=== PATIENT | male | born 1965 | race Caucasian/White ===

== ENCOUNTER 2017-07-28 22:04 | Emergency (ER) | payer OTHER ==
[2017-07-28] MEDS ORDERED: KETOROLAC TROMETHAMINE 30MG/ML ONE (22:59)
== END 2017-07-28 23:26 | disposition home or self-care (01) ==
LOC: EDH 22:04
DX: S27.898A Other injury of other specified intrathoracic organs, initial encounter (principal); S22.31XA Fracture of one rib, right side, initial encounter for closed fracture; I10 Essential (primary) hypertension; E11.9 Type 2 diabetes mellitus without complications; Z79.4 Long term (current) use of insulin; Z88.0 Allergy status to penicillin; W18.39XA Other fall on same level, initial encounter; Y93.89 Activity, other specified; Y92.89 Other specified places as the place of occurrence of the external cause; Y99.8 Other external cause status
CPT/HCPCS: 71046; 71100; 96372; 99284; J1885

== ENCOUNTER 2017-10-04 21:40 | Emergency (ER) | payer OTHER ==
[2017-10-04 21:54] LABS: BASOPHILS % (AUTO) 0.5 % (0.0-5.0); EOSINOPHILS % (AUTO) 3.3 % (0.0-8.0); HEMATOCRIT 46.6 % (42-54); LYMPHOCYTES % (AUTO) 40.5 % (21.0-51.0); MEAN CORPUSCULAR HEMOGLOBIN 28.7 pg (27.0-33.0); MEAN CORPUSCULAR HGB CONC 33.1 g/dL (32.0-36.0); MEAN CORPUSCULAR VOLUME 86.7 fL (79-99); MONOCYTES % (AUTO) 10.5 % (3.0-13.0); NEUTROPHILS % (AUTO) 45.2 % (40.0-77.0); NUCLEATED RED BLOOD CELLS 0.1 % (0.0-0.19); PLATELET COUNT (AUTO) 170 K/uL (130-400); RED BLOOD CELL COUNT(AUTO) 5.37 MIL/uL (4.50-6.20); RED CELL DISTRIBUTION WIDTH 13.8 % (11.0-15.5); WHITE BLOOD COUNT (AUTO) 7.9 K/uL (4.8-10.8)
[2017-10-04 22:01] LABS: CARBON DIOXIDE 29 mmol/L (21-32); CHLORIDE 101 mmol/L (101-111); GLOMERULAR FILTR. RATE CALC 83 mL/min (>60); GLUCOSE,RANDOM 262 mg/dL (70-105); POTASSIUM 3.5 mmol/L (3.5-5.1); SODIUM SERUM 138 mmol/L (136-145); UREA NITROGEN, BLOOD 16 mg/dL (7-18)
[2017-10-04 22:15] LABS: ALANINE AMINOTRANSFERASE 21 U/L (12-78); ALBUMIN 3.5 g/dL (3.5-5.0); ASPARTATE AMINOTRANSFERASE 11 U/L (10-37); BILIRUBIN,TOTAL 0.9 mg/dL (0.2-1.0); CREATINE KINASE MB 1.1 ng/mL (0.5-3.6); CREATINE KINASE, TOTAL 65 U/L (21-232); MYOGLOBIN 50 ng/mL (10-92); TOTAL PROTEIN, SERUM 7.2 g/dL (6.0-8.3); TROPONIN I < 0.04 ng/mL (0.00-0.06)
== END 2017-10-05 01:02 | disposition home or self-care (01) ==
LOC: EDH 21:40
DX: R55 Syncope and collapse (principal); E86.1 Hypovolemia; E11.65 Type 2 diabetes mellitus with hyperglycemia; I10 Essential (primary) hypertension; E11.40 Type 2 diabetes mellitus with diabetic neuropathy, unspecified; Z88.0 Allergy status to penicillin; Z79.4 Long term (current) use of insulin; Z79.899 Other long term (current) drug therapy; H54.7 Unspecified visual loss
CPT/HCPCS: 36415; 70450; 80053; 82550; 82553; 83874; 84484; 85025; 93005; 96360

== ENCOUNTER 2020-03-02 10:09 | Emergency (ER) | payer OTHER ==
[2020-03-02] MEDS ORDERED: KETOROLAC TROMETHAMINE 30MG/ML ONE (11:00)
[2020-03-02] MEDS ORDERED: DIAZEPAM 5 MG/ML 2 ML SYG ONE (11:01)
== END 2020-03-02 13:19 | disposition home or self-care (01) ==
LOC: EDH 10:09
DX: M25.552 Pain in left hip (principal); M54.17 Radiculopathy, lumbosacral region; I10 Essential (primary) hypertension; E11.40 Type 2 diabetes mellitus with diabetic neuropathy, unspecified; Z88.0 Allergy status to penicillin; W18.39XA Other fall on same level, initial encounter; Y93.89 Activity, other specified; Y92.89 Other specified places as the place of occurrence of the external cause; Y99.8 Other external cause status
CPT/HCPCS: 72192; 96374; 96375; 99284; J1885; J3360

== ENCOUNTER 2021-09-05 21:18 | Observation (INO) | payer OTHER ==
[~2021-09-05] VITALS: Ht 170.2 cm; Wt 102.5 kg
[2021-09-05 22:08] LABS: BASOPHILS % (AUTO) 0.4 % (0.0-5.0); EOSINOPHILS % (AUTO) 3.5 % (0.0-8.0); HEMATOCRIT 47.6 % (42-54); LYMPHOCYTES % (AUTO) 42.3 % (21.0-51.0); MEAN CORPUSCULAR HEMOGLOBIN 28.9 pg (27.0-33.0); MEAN CORPUSCULAR VOLUME 87.7 fL (79-99); MONOCYTES % (AUTO) 10.7 % (3.0-13.0); NEUTROPHILS % (AUTO) 42.8 % (40.0-77.0); PLATELET COUNT (AUTO) 136 K/uL (130-400); RED BLOOD CELL COUNT(AUTO) 5.43 MIL/uL (4.50-6.20); RED CELL DISTRIBUTION WIDTH 12.8 % (11.0-15.5)
[2021-09-05 22:18] LABS: CREATININE 0.9 mg/dL (0.5-1.5); INR 0.94 (0.85-1.15); POTASSIUM 3.9 mmol/L (3.5-5.1); PROTHROMBIN TIME 10.3 SEC (9.6-11.6)
[2021-09-05 22:19] LABS: PARTIAL THROMBOPLASTIN TIME 29.3 SEC (26.3-35.5)
[2021-09-05 22:23] LABS: ALBUMIN 3.5 g/dL (3.5-5.0); BILIRUBIN,TOTAL 0.4 mg/dL (0.2-1.0); MAGNESIUM 2.1 mg/dL (1.80-2.40); TOTAL PROTEIN, SERUM 7.2 g/dL (6.0-8.3)
[2021-09-05] MEDS ORDERED: 0.9%NACL 1000ML 1,000 ML IV ONE (23:30)
[2021-09-06] VITALS (7 sets, daily range): BP systolic 91–160; BP diastolic 59–89
[2021-09-06 00:39] LABS: APPEARANCE,URINE Clear (CLEAR); BILIRUBIN,URINE Negative (NEGATIVE); COLOR,URINE Yellow (YELLOW); GLUCOSE, URINE (UA) >=1000 mg/dL (NEGATIVE); KETONES,URINE Negative (NEGATIVE); LEUKOCYTE ESTERASE ,URINE Negative (NEGATIVE); NITRATE,URINE Negative (NEGATIVE); OCCULT BLOOD,URINE Negative (NEGATIVE); PROTEIN,URINE Negative (NEGATIVE); UROBILINOGEN,URINE 0.2 mg/dL (0.2-1.0)
[2021-09-06 00:44] LABS: BACTERIA,URINE None Seen /HPF (None Seen); MUCUS,URINE Few LPF (None Seen); RBC,URINE None Seen /HPF (0-1); SQUAMOUS EPITHELIAL CELL,UR Few /HPF (0-2); WBC,URINE None Seen /HPF (0-1)
[2021-09-06] MEDS ORDERED: ALBUTEROL INHALER 90MCG/INH IH PRN (01:00)
[2021-09-06] MEDS ORDERED: ACETAMINOPHEN 650 MG SUPPOSITORY RC PRN (01:00)
[2021-09-06] MEDS ORDERED: LACTULOSE 20 GM/30 ML UDCUP PO PRN (01:00)
[2021-09-06] MEDS ORDERED: ACETAMINOPHEN 325 MG TAB PO PRN (01:00)
[2021-09-06] MEDS ORDERED: HYDRALAZINE 20MG/ML VIAL IV PRN (01:00)
[2021-09-06] MEDS ORDERED: SEMA1PEN3 SQ (01:25)
[2021-09-06] MEDS ORDERED: ACET-2079 PO (01:25)
[2021-09-06] MEDS ORDERED: AEC81 PO (01:25)
[2021-09-06] MEDS ORDERED: METF-446 PO (01:25)
[2021-09-06] MEDS ORDERED: LISI10TA24 PO (01:25)
[2021-09-06] MEDS ORDERED: OMEG-189 PO (01:25)
[2021-09-06] MEDS ORDERED: ATOR40TA69 PO (01:25)
[2021-09-06] MEDS ORDERED: TERB250T89 PO (01:25)
[2021-09-06] MEDS ORDERED: NITR0.4T50 SL (01:25)
[2021-09-06] MEDS ORDERED: EMPA10TA PO (01:25)
[2021-09-06] MEDS ORDERED: CETI10TA57 PO (01:25)
[2021-09-06] MEDS ORDERED: GABA300C PO (01:25)
[2021-09-06] MEDS ORDERED: ZOLP5TAB8 PO (01:25)
[2021-09-06] MEDS ORDERED: MECL-226 PO (01:25)
[2021-09-06] MEDS ORDERED: RABE20TA30 PO (01:25)
[2021-09-06] MEDS ORDERED: MELO-108 PO (01:25)
[2021-09-06] MEDS ORDERED: INSU100V12 SQ (01:25)
[2021-09-06] MEDS: 0.9%NACL 1000ML 1,000 ML IV SCH ×3 (01:33→20:44)
[2021-09-06] MEDS: INSULIN LISPRO 100 UNIT/ML 3ML SQ SCH ×4 (07:30→20:41)
[2021-09-06] MEDS: ENOXAPARIN SODIUM 30 MG/0.3 ML SQ SCH (09:31)
[2021-09-06] MEDS ORDERED: MECLIZINE HCL 12.5 MG TABLET PO PRN (15:30)
[2021-09-07] VITALS (8 sets, daily range): BP systolic 72–146; BP diastolic 54–86
[2021-09-07 05:10] LABS: HEMATOCRIT 46.9 % (42-54); MEAN CORPUSCULAR HEMOGLOBIN 28.2 pg (27.0-33.0); MEAN CORPUSCULAR HGB CONC 32.2 g/dL (32.0-36.0); MEAN CORPUSCULAR VOLUME 87.7 fL (79-99); RED BLOOD CELL COUNT(AUTO) 5.35 MIL/uL (4.50-6.20); RED CELL DISTRIBUTION WIDTH 12.7 % (11.0-15.5); WHITE BLOOD COUNT (AUTO) 8.7 K/uL (4.8-10.8)
[2021-09-07 05:27] LABS: CREATININE 0.9 mg/dL (0.5-1.5); MAGNESIUM 2.1 mg/dL (1.80-2.40); PHOSPHORUS 3.6 mg/dL (2.5-4.9); POTASSIUM 4.2 mmol/L (3.5-5.1)
[2021-09-07] MEDS: 0.9%NACL 1000ML 1,000 ML IV SCH (05:28)
[2021-09-07] MEDS: INSULIN LISPRO 100 UNIT/ML 3ML SQ SCH ×4 (05:28→21:00)
[2021-09-07] MEDS: ASPIRIN 81 MG EC TAB PO SCH (08:31)
[2021-09-07] MEDS: CETIRIZINE HCL 5 MG TABLET PO SCH (08:32)
[2021-09-07] MEDS: ATORVASTATIN 40 MG TABLET PO SCH (08:32)
[2021-09-07] MEDS: ENOXAPARIN SODIUM 30 MG/0.3 ML SQ SCH (08:33)
[2021-09-07] MEDS: MIDODRINE HCL 5 MG TABLET PO SCH (21:48)
[2021-09-08] VITALS (7 sets, daily range): BP systolic 86–132; BP diastolic 54–83
[2021-09-08 04:46] LABS: BASOPHILS % (AUTO) 0.5 % (0.0-5.0); EOSINOPHILS % (AUTO) 3.4 % (0.0-8.0); HEMATOCRIT 50.3 % (42-54); LYMPHOCYTES % (AUTO) 36.6 % (21.0-51.0); MEAN CORPUSCULAR HEMOGLOBIN 28.4 pg (27.0-33.0); MEAN CORPUSCULAR HGB CONC 32.2 g/dL (32.0-36.0); MEAN CORPUSCULAR VOLUME 88.2 fL (79-99); MONOCYTES % (AUTO) 9.1 % (3.0-13.0); PLATELET COUNT (AUTO) 186 K/uL (130-400); RED CELL DISTRIBUTION WIDTH 12.7 % (11.0-15.5); WHITE BLOOD COUNT (AUTO) 8.4 K/uL (4.8-10.8)
[2021-09-08 05:03] LABS: ALBUMIN 3.6 g/dL (3.5-5.0); BILIRUBIN,TOTAL 0.8 mg/dL (0.2-1.0); CREATININE 0.8 mg/dL (0.5-1.5); POTASSIUM 4.1 mmol/L (3.5-5.1); TOTAL PROTEIN, SERUM 7.6 g/dL (6.0-8.3)
[2021-09-08] MEDS: INSULIN LISPRO 100 UNIT/ML 3ML SQ SCH ×3 (06:14→16:30)
[2021-09-08] MEDS: ATORVASTATIN 40 MG TABLET PO SCH (10:07)
[2021-09-08] MEDS: ASPIRIN 81 MG EC TAB PO SCH (10:07)
[2021-09-08] MEDS: MIDODRINE HCL 5 MG TABLET PO SCH (10:07)
[2021-09-08] MEDS: CETIRIZINE HCL 5 MG TABLET PO SCH (10:07)
[2021-09-08] MEDS: ENOXAPARIN SODIUM 30 MG/0.3 ML SQ SCH (10:08)
[2021-09-08] MEDS: 0.9%NACL 1000ML 1,000 ML IV SCH ×2 (13:00→13:03)
== END 2021-09-08 18:49 | disposition home or self-care (01) ==
LOC: EDH 21:18 → EDHIP 09-06 00:47 → 4CH 09-06 03:18
PROVIDERS: ADMIT Internal Medicine Critical Care Medicine; ATTEND Internal Medicine Critical Care Medicine
DX: I95.9 Hypotension, unspecified (principal); R42 Dizziness and giddiness; R06.00 Dyspnea, unspecified; I10 Essential (primary) hypertension; E78.5 Hyperlipidemia, unspecified; I73.9 Peripheral vascular disease, unspecified; E11.40 Type 2 diabetes mellitus with diabetic neuropathy, unspecified; E78.00 Pure hypercholesterolemia, unspecified; H54.61 Unqualified visual loss, right eye, normal vision left eye; I95.1 Orthostatic hypotension; K52.9 Noninfective gastroenteritis and colitis, unspecified; K21.9 Gastro-esophageal reflux disease without esophagitis; Z79.4 Long term (current) use of insulin; Z79.82 Long term (current) use of aspirin; Z79.84 Long term (current) use of oral hypoglycemic drugs; Z89.411 Acquired absence of right great toe; Z89.421 Acquired absence of other right toe(s); Z79.899 Other long term (current) drug therapy; Z98.890 Other specified postprocedural states
CPT/HCPCS: 36415 ×4; 70450; 70551; 71045; 80048; 80053 ×2; 81001; 82550 ×2; 82948 ×10; 83605; 83735 ×2; 83880; 84100; 84484; 85025 ×2; 85027; 85610; 85730; 87040 ×2; 93005 ×2; 93880; 96360; 96361; 96372 ×3; 99285; G0378 ×66; J1650 ×3; J7030 ×3

== ENCOUNTER → 2021-10-10 | Outpatient (CLI) | payer OTHER ==
[~2021-10-10] MED LIST: AEC81 PO; ATOR40TA69 PO; CETI10TA57 PO; EMPA10TA PO; GABA300C PO; INSU100V12 SQ; MECL-226 PO; MELO-108 PO; METF-446 PO; NITR0.4T50 SL; OMEG-189 PO; RABE20TA30 PO; REGADENOSON 0.4 MG/5 ML PF SYG IVP ONE; REGADENOSON 0.4 MG/5 ML PF SYG IVP SCH; SEMA1PEN3 SQ; TERB250T89 PO; ZOLP5TAB8 PO
== END | disposition home or self-care (01) ==
LOC: CANPRECLI → SHCH 09:01
PROVIDERS: ATTEND Internal Medicine Cardiovascular Disease
DX: I20.9 Angina pectoris, unspecified (principal)
CPT/HCPCS: 78452; 93017; 96374; A9500 ×2; J2785

== ENCOUNTER → 2021-10-30 | Outpatient (CLI) | payer OTHER ==
[~2021-10-30] MED LIST changes: -REGADENOSON 0.4 MG/5 ML PF SYG IVP ONE; -REGADENOSON 0.4 MG/5 ML PF SYG IVP SCH
== END | disposition home or self-care (01) ==
LOC: CANPRECLI → SHCH 13:34
PROVIDERS: ATTEND Internal Medicine Cardiovascular Disease
DX: I20.9 Angina pectoris, unspecified (principal); I11.9 Hypertensive heart disease without heart failure; E11.9 Type 2 diabetes mellitus without complications; E66.9 Obesity, unspecified
CPT/HCPCS: 93306

== ENCOUNTER → 2021-12-07 | Outpatient (CLI) | payer OTHER ==
[~2021-12-07] MED LIST changes: +0.9% NACL 500ML IV.SOLN 500 ML IV SCH
[2021-12-07 10:32] LABS: BASOPHILS % (AUTO) 0.2 % (0.0-5.0); HEMATOCRIT 45.1 % (42-54); LYMPHOCYTES % (AUTO) 33.3 % (21.0-51.0); MEAN CORPUSCULAR HEMOGLOBIN 28.9 pg (27.0-33.0); MEAN CORPUSCULAR HGB CONC 32.6 g/dL (32.0-36.0); MEAN CORPUSCULAR VOLUME 88.6 fL (79-99); MONOCYTES % (AUTO) 9.3 % (3.0-13.0); NEUTROPHILS % (AUTO) 54.8 % (40.0-77.0); PLATELET COUNT (AUTO) 192 K/uL (130-400); RED BLOOD CELL COUNT(AUTO) 5.09 MIL/uL (4.50-6.20); RED CELL DISTRIBUTION WIDTH 14.3 % (11.0-15.5); WHITE BLOOD COUNT (AUTO) 8.4 K/uL (4.8-10.8)
[2021-12-07 10:41] LABS: CREATININE 0.8 mg/dL (0.5-1.5); POTASSIUM 4.7 mmol/L (3.5-5.1)
[2021-12-07 11:06] LABS: B-TYPE NATRIURETIC PEPTIDE 9 pg/mL (0-100)
[2021-12-07 12:09] LABS: INR 0.93 (0.85-1.15)
[2021-12-07 12:10] LABS: PARTIAL THROMBOPLASTIN TIME 28.2 SEC (26.3-35.5)
== END | disposition home or self-care (01) ==
LOC: EDSTATUS 09:00 → DAH 10:00
PROVIDERS: ATTEND Internal Medicine Cardiovascular Disease
DX: Z01.810 Encounter for preprocedural cardiovascular examination (principal); I25.119 Atherosclerotic heart disease of native coronary artery with unspecified angina pectoris; Z79.01 Long term (current) use of anticoagulants
CPT/HCPCS: 36415; 80048; 83880; 85025; 85610; 85730; 93005

== ENCOUNTER 2022-06-09 08:54 | Emergency (ER) | payer OTHER ==
[~2022-06-09] VITALS: Ht 170.2 cm; Wt 99.8 kg
[~2022-06-09 08:54] MED LIST changes: -0.9% NACL 500ML IV.SOLN 500 ML IV SCH
[2022-06-09 09:34] VITALS: BP 139/89
[2022-06-09 09:43] LABS: BASOPHILS % (AUTO) 0.5 % (0.0-5.0); HEMATOCRIT 51.5 % (42-54); LYMPHOCYTES % (AUTO) 33.2 % (21.0-51.0); MEAN CORPUSCULAR HEMOGLOBIN 28.8 pg (27.0-33.0); MEAN CORPUSCULAR HGB CONC 32.6 g/dL (32.0-36.0); MEAN CORPUSCULAR VOLUME 88.3 fL (79-99); MONOCYTES % (AUTO) 9.5 % (3.0-13.0); NEUTROPHILS % (AUTO) 54.6 % (40.0-77.0); PLATELET COUNT (AUTO) 205 K/uL (130-400); RED BLOOD CELL COUNT(AUTO) 5.83 MIL/uL (4.50-6.20); RED CELL DISTRIBUTION WIDTH 13.2 % (11.0-15.5); WHITE BLOOD COUNT (AUTO) 8.5 K/uL (4.8-10.8)
[2022-06-09 09:59] LABS: CREATININE 0.9 mg/dL (0.5-1.5); POTASSIUM 4.8 mmol/L (3.5-5.1)
[2022-06-09 10:06] LABS: ALBUMIN 3.9 g/dL (3.5-5.0); TOTAL PROTEIN, SERUM 8.1 g/dL (6.0-8.3)
[2022-06-09 10:25] LABS: MAGNESIUM 2.1 mg/dL (1.80-2.40)
[2022-06-09] MEDS ORDERED: DIPHENOXYLATE HCL/ATROPINE 2.5/0.025 MG TAB PO SCH (11:00)
[2022-06-09] MEDS ORDERED: FAMOTIDINE 20MG TAB PO SCH (11:00)
[2022-06-09] MEDS ORDERED: 0.9%NACL 1000ML 1,000 ML IV SCH (11:30)
== END 2022-06-09 14:39 | disposition home or self-care (01) ==
LOC: EDH 08:54
DX: R19.7 Diarrhea, unspecified (principal); E86.0 Dehydration; R10.13 Epigastric pain; R10.30 Lower abdominal pain, unspecified; I10 Essential (primary) hypertension; E78.00 Pure hypercholesterolemia, unspecified; E11.9 Type 2 diabetes mellitus without complications; Z90.49 Acquired absence of other specified parts of digestive tract; Z79.82 Long term (current) use of aspirin; Z79.84 Long term (current) use of oral hypoglycemic drugs; Z79.1 Long term (current) use of non-steroidal anti-inflammatories (NSAID); Z79.899 Other long term (current) drug therapy
CPT/HCPCS: 99284; 74176; 96360; 96361; 82550; 83735; 80053; 85025; 87046; 87177; 87324; 36415; J7030

== ENCOUNTER 2023-09-01 15:10 | Emergency (ER) | payer OTHER ==
[~2023-09-01] VITALS: Ht 170.2 cm; Wt 95.3 kg
[2023-09-01 15:42] LABS: HEMATOCRIT 45.6 % (42-54); MEAN CORPUSCULAR VOLUME 85.2 fL (79-99); RED BLOOD CELL COUNT(AUTO) 5.35 MIL/uL (4.50-6.20); RED CELL DISTRIBUTION WIDTH 12.8 % (11.0-15.5); WHITE BLOOD COUNT (AUTO) 6.5 K/uL (4.8-10.8)
[2023-09-01 15:50] LABS: CREATININE 0.8 mg/dL (0.5-1.3)
[2023-09-01 15:54] LABS: ALBUMIN 3.5 g/dL (3.5-5.0); BILIRUBIN,TOTAL 0.9 mg/dL (0.2-1.0); TOTAL PROTEIN, SERUM 7.1 g/dL (6.0-8.3)
[2023-09-01] MEDS: INSULIN HUMULIN R 100 UNIT/ML 3ML SQ ONE (17:54)
[2023-09-01 18:04] VITALS: BP 154/82; PULSE 68; RESP 18; O2SAT 100
== END 2023-09-01 18:34 | disposition home or self-care (01) ==
LOC: EDH 15:10
DX: R42 Dizziness and giddiness (principal); E11.9 Type 2 diabetes mellitus without complications; Z79.4 Long term (current) use of insulin; Z79.82 Long term (current) use of aspirin; Z79.84 Long term (current) use of oral hypoglycemic drugs; Z79.899 Other long term (current) drug therapy
CPT/HCPCS: 99285; 70450; 71045; 84484; 80053; 83880; 85027; 82948; 36415; 96372; 93005; J1815